=== PATIENT | female | born 1980 | race Caucasian/White ===

== ENCOUNTER 2021-10-15 16:35 | Emergency (ER) | payer OTHER ==
[~2021-10-15] VITALS: Ht 157 cm; Wt 60.7 kg
[2021-10-15 16:48] VITALS: BP 114/74
--- NOTE | 2021-10-15 17:14 | ED Upper Extremity ---
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 She has decreased AROM of the left thumb and a very small laceration to the thumb. Bleeding controlled on arrival. This occured at 1200. Source: patient Exam Limitations: no limitations History of Present Illness Date Seen by Provider: Oct 15, 2021 Time Seen by Provider: 17:12 Initial Comments Patient is a 41-year-old female presents ED with left dorsum hand pain. 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 She states she had immediate pain with 2 skin abrasions. She cleaned the area at home. She is having pain with movement of her left thumb. No history of previous fracture. Up-to-date her test within the past 5 years. Allergies and Home Medications Patient Home Medication List Home Medication List Reviewed: Yes Review of Systems Constitutional: No chills, No diaphoresis, No malaise, No weakness EENTM: No blurred vision, No double vision Respiratory: No cough, No orthopnea, No short of breath, No stridor Cardiovascular: No chest pain, No edema Gastrointestinal: No abdominal pain, No diarrhea, No nausea, No vomiting Genitourinary: No decreased output Musculoskeletal: No back pain; joint pain, muscle pain Skin: change in color; No change in hair/nails Psychiatric/Neurological: Denies Anxiety, Denies Depressed All Other Systems Reviewed Negative Unless Noted: Yes Past Tmshebm-Ivkvad-Xbiqik Hx Patient Social History Tobacco Use?: No Use of E-Cig and/or Vaping dev: No Substance use?: No Alcohol Use?: No Pt feels they are or have been: No Physical Exam Vital Signs Vital Signs - First Documented 10/15/21 16:48 Temp 36.2 Pulse 80 Resp 16 B/P (MAP) 114/74 (87) Pulse Ox 100 O2 Delivery Room Air Capillary Refill : Less Than 3 Seconds Height, Weight, BMI Height: '" Weight: lbs. oz. kg; 24.00 BMI Method: General Appearance: WD/WN, no apparent distress HEENT: PERRL/EOMI, normal ENT inspection, TMs normal, pharynx normal Neck: non-tender, full range of motion, supple, normal inspection Cardiovascular: regular rate, rhythm, no edema, no gallop, no JVD Respiratory: chest non-tender, lungs clear, normal breath sounds, no respiratory distress, no accessory muscle use Gastrointestinal: normal bowel sounds, non tender, soft Back: normal inspection, no CVA tenderness, no vertebral tenderness Hand: Left, bone tenderness, soft tissue tenderness, stiffness, swelling Neurologic/Tendon: normal sensation, normal motor functions Neurologic/Psychiatric: 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 Irrigation of the wounds here. She has 2 superficial wounds to the left hand. Steri-Strip was placed to one of the superficial lacerations. Dermabond was placed topical. Neurovascular intact. Finger splint for comfort. Allow healing avoid getting the Steri-Strips wet. Up-to-date on her tetanus within the past 5 years. Orthopedic follow-up in 7 to 10 days for further evaluation. Tico wrap for comfort and immobilization Impression Primary Impression: Hand injury Disposition: 01 HOME, SELF-CARE Condition: Stable Departure-Patient Inst. Decision time for Depature: 17:38 Referrals: NO,LOCAL PHYSICIAN (PCP) Primary Care Physician EPIFANIO SEGOVIA MD Patient Instructions: Hand Pain Add. Discharge Instructions: Anti-inflammatories for pain. Ice and Tico wrap for comfort. Orthopedic outpatient follow-up if symptoms progress or worsen. All discharge instructions reviewed with patient and/or family. Voiced un derstanding. ELIZA DAO Oct 15, 2021 17:14
--- NOTE | 2021-10-15 17:31 | Diagnostic Imaging Report ---
INDICATION: Left hand injury. Three views of the left hand show no fracture, dislocation or other acute abnormalities. IMPRESSION: Negative left hand. Dictated by: Dictated on workstation # [id number]
== END 2021-10-15 18:00 | disposition home or self-care (01) ==
LOC: ER 16:39
DX: S61.022A Laceration with foreign body of left thumb without damage to nail, initial encounter (principal); W55.22XA Struck by cow, initial encounter; Y93.K9 Activity, other involving animal care
CPT/HCPCS: 73130